=== PATIENT | female | born 1975 | race Caucasian/White ===

== ENCOUNTER 2018-03-25 11:37 | Emergency (ER) | END 2018-03-25 15:36 | disposition home or self-care (01) ==

== ENCOUNTER 2018-09-13 11:09 | Emergency (ER) | END 2018-09-13 12:25 | disposition home or self-care (01) ==

== ENCOUNTER 2018-09-15 17:47 | Emergency (ER) | END 2018-09-15 21:54 | disposition home or self-care (01) ==